=== PATIENT | male | born 1950 | race Caucasian/White ===

== ENCOUNTER → 2017-10-21 | Outpatient (CLI) | payer MEDICARE, OTHER | LOC: COL.VAS 07:57 | DX: I65.23 Occlusion and stenosis of bilateral carotid arteries (principal) ==

== ENCOUNTER → 2020-02-08 | Outpatient (CLI) | payer MEDICARE, OTHER | LOC: COL.VAS 10:53 | DX: I65.22 Occlusion and stenosis of left carotid artery (principal) ==

== ENCOUNTER → 2020-03-30 | Outpatient (CLI) | payer MEDICARE, OTHER | LOC: COL.RAD 08:12 | DX: Z13.6 Encounter for screening for cardiovascular disorders (principal); F17.201 Nicotine dependence, unspecified, in remission ==

== ENCOUNTER 2022-03-02 11:15 | Outpatient (RCR) | payer OTHER | END 2022-03-03 | disposition home or self-care (01) | LOC: WSPT | DX: R26.81 Unsteadiness on feet (principal) ==

== ENCOUNTER 2022-03-30 08:15 | Outpatient (RCR) | payer OTHER | END 2022-04-03 | disposition home or self-care (01) | LOC: WSPT | DX: R26.81 Unsteadiness on feet (principal) ==

== ENCOUNTER 2022-04-27 08:22 | Outpatient (RCR) | payer OTHER | END 2022-04-30 15:19 | disposition home or self-care (01) | LOC: WSPT 08:22 | DX: R26.81 Unsteadiness on feet (principal) ==